=== PATIENT | female | born 1985 | race American Indian/Alaskan Native ===

== ENCOUNTER 2017-02-15 14:32 | Emergency (ER) | payer MEDICAID ==
[2017-02-15 15:53] LABS: Basophils % (Auto) 0.6 % (0.0-1.8); Eosinophils % (Auto) 1.6 % (0.0-4.3); Mean Corpuscular HGB Conc 33 % (30-34); Mean Corpuscular Hemoglobin 28 pg (28-32); Mean Corpuscular Volume 84 fl (79-97); Red Blood Count 4.31 M/mm3 (3.65-5.03); Red Cell Distribution Width 15.2 % (13.2-15.2); White Blood Count 9.1 K/mm3 (4.5-11.0)
[2017-02-15 15:54] LABS: Platelet Count 208 K/mm3 (140-440)
[2017-02-15 16:04] LABS: INR 1.05 (0.87-1.13)
[2017-02-15 16:05] LABS: Partial Thromboplastin Time 29.8 Sec. (24.2-36.6)
[2017-02-15 16:15] LABS: Anion Gap 18 mmol/L; BUN/Creatinine Ratio 23.33; Blood Urea Nitrogen 14 mg/dL (7-17); Calcium 8.7 mg/dL (8.4-10.2); Carbon Dioxide 25 mmol/L (22-30); Chloride 101.2 mmol/L (98-107); Glucose 82 mg/dL (65-100); Potassium 4.3 mmol/L (3.6-5.0); Sodium 140 mmol/L (137-145)
--- NOTE | 2017-02-15 17:40 | Cat Scan Report ---
FINAL REPORT EXAM: CT HEAD/BRAIN WO CON HISTORY: LEFT SIDED NUMBNESS TECHNIQUE: Standard unenhanced CT of the head at 5.0 millimeter axial increments. PRIORS: None. FINDINGS: The ventricular system is normal in size and configuration. There is no evidence for parenchymal volume loss. There is no evidence for mass lesion, mass effect, midline shift, acute intracranial hemorrhage, or acute ischemia/ infarction. No evidence for acute skull fracture is seen. No abnormality in the overlying scalp soft tissues is seen. Visualized paranasal sinuses are clear. IMPRESSION: Negative CT of the head. No acute intracranial process noted.
[2017-02-15 20:51] VITALS: BP 127/73
--- NOTE | 2017-02-15 20:52 | Emergency Department Report ---
HPI - General Chief Complaint: Neuro Symptoms/Deficit Time Seen by Provider: 02/15/17 20:15 - HPI HPI: This is a 31-year-old -[place] female, who drove herself in to be seen, with the complaints of a one-month history of some right-sided neck pain and shoulder pain that feels like stiffness. However the patient had an episode yesterday in which she fell while trying to get out of bed and felt like she had left leg weakness that caused her to have the inability to get up for about 30 minutes. Her symptoms improved and the patient ended up driving herself into work. However today, the patient also started having some pain to the left shoulder and arm and the left leg and was told to leave work and treatment. She has not taken anything for her symptoms prior to presentation. She denies any headache, vision change, slurred speech, facial asymmetry, chest pain, shortness of breath. No recent travel or sick contacts at home. Her only past medical history is gastroparesis. She does not have a primary care doctor. ED Past Medical Hx - Past Medical History Additional medical history: GASTROPARESIS - Surgical History Past Surgical History?: No - Social History Smoking Status: Current Every Day Smoker Substance Use Type: None - Medications Home Medications: Home Medications Medication Instructions Recorded Confirmed Last Taken Type Ibuprofen [Motrin 600 MG tab] 600 mg PO Q8H PRN #20 tablet 02/15/17 Unknown Rx ED Review of Systems ROS: Stated complaint: LT SIDE NUMBNESS Other details as noted in HPI Comment: All other systems reviewed and negative Constitutional: denies: chills, fever Eyes: denies: eye pain, eye discharge, vision change ENT: denies: ear pain, throat pain Respiratory: denies: cough, shortness of breath, wheezing Cardiovascular: denies: chest pain, palpitations Gastrointestinal: denies: abdominal pain, nausea, diarrhea Genitourinary: denies: urgency, dysuria, discharge Musculoskeletal: arthralgia, myalgia Skin: denies: rash, lesions Neurological: weakness. denies: headache, paresthesias Physical Exam - Physical Exam Vital Signs: Vital Signs 02/15/17 02/15/17 02/15/17 15:18 19:46 19:51 Temperature 98.9 F Pulse Rate 81 82 Respiratory 17 15 Rate Blood Pressure 137/98 135/50 O2 Sat by Pulse 100 87 82 L Oximetry 02/15/17 02/15/17 19:55 20:07 Temperature Pulse Rate 73 78 Respiratory 14 Rate Blood Pressure 135/50 O2 Sat by Pulse 99 Oximetry Physical Exam: GENERAL: The patient is well-developed well-nourished. HEENT: Normocephalic. Atraumatic. Extraocular motions are intact. Patient has moist mucous membranes. Pupils equal reactive to light bilaterally. No nystagmus. NECK: Supple. Trachea is midline. Full range of motion. No step-off or deformity. There is some tenderness to palpation that is reproducible along the right posterior lateral neck and lateral cervical muscles that travels down to the superior posterior right shoulder that appears consistent with tension along the trapezius muscle. CHEST/LUNGS: Clear to auscultation. There is no respiratory distress noted. HEART/CARDIOVASCULAR: Regular. There is no tachycardia. There is no gallop rub or murmur. ABDOMEN: Abdomen is soft, nontender. Patient has normal bowel sounds. There is no abdominal distention. SKIN: There is no rash. There is no edema. There is no diaphoresis. NEURO: The patient is awake, alert, and oriented. The patient is cooperative. The patient has no focal neurologic deficits. The patient has normal speech and gait. Cranial nerves II through XII grossly intact. No pronator drift. No dysmetria. DTR is 2 over 4 patellar bilaterally. MUSCULOSKELETAL: There is no tenderness or deformity. There is no limitation range of motion. There is no evidence of acute injury. Muscle strength 5 out of 5 upper and lower extremities bilaterally. ED Course Vital Signs 02/15/17 02/15/17 02/15/17 15:18 19:46 19:51 Temperature 98.9 F Pulse Rate 81 82 Respiratory 17 15 Rate Blood Pressure 137/98 135/50 O2 Sat by Pulse 100 87 82 L Oximetry 02/15/17 02/15/17 19:55 20:07 Temperature Pulse Rate 73 78 Respiratory 14 Rate Blood Pressure 135/50 O2 Sat by Pulse 99 Oximetry ED Medical Decision Making - Lab Data Result diagrams: 02/15/17 15:42 02/15/17 15:42 - EKG Data -: EKG Interpreted by Ut EKG shows normal: sinus rhythm, axis, intervals, QRS complexes, ST-T waves Rate: normal - EKG Data When compared to previous EKG there are: previous EKG unavailable Interpretation: normal EKG - Radiology Data Radiology results: report reviewed CT of the head does not show any acute process including no hemorrhage, mass, shift, diffuse edema or skull fracture. - Medical Decision Making This is a 31-year-old female presents to the emergency department with 2 main issues. First, the patient has been having chronic pain to the right side of the neck and shoulder for about 1 month or so. For the past 2 days she is also having some pain to the left arm and down the left leg. There is been no swelling, skin color change or any deformity. There has been no trauma. The other issue is that the patient had an episode yesterday which she fell trying to get out of bed to go to left lower extremity weakness. However the weakness resolved and the patient went on to go to work. Patient was evaluated today with physical exam, labs, imaging and EKG. EKG shows no ST elevation DE, ischemia or dysrhythmia. CT of the head without contrast does not show any bleed, shift, mass, ischemia or any acute process. Her labs are unremarkable and do not show any etiology for symptoms. The patient has some reproducible tenderness to palpation in certain areas of the body that also has taut musculature. Patient appears to have some musculoskeletal pain, probable muscle spasms, and there could be some underlying neuropathy. However there are no focal, motor or sensory deficits in her cranial nerves are intact. It is always possible that the patient had some level of a TIA yesterday but there is no lab or imaging that would confirm this. If the patient had a CVA yesterday, it would show up on the CT done today most likely. Patient is also a 0 on the NIH stroke scale at this point. The patient appears safe for discharge home. She does not have any risk factors for coronary artery disease , CVA. Patient was seen ambulatory in the emergency department and appears stable. She was given referrals for primary care, orthopedists for her arthralgia and spasms, and neurology weakness yesterday. She's been encouraged to return to the emergency department immediately via EMS if she has any further episodes of weakness or any neurological deficits or any acute distress. She understands and agrees to the plan. - Differential Diagnosis muscle spasm, musculoskeletal pain, TIA, neuropathy Critical Care Time: No Critical care attestation.: If time is entered above; I have spent that time in minutes in the direct care of this critically ill patient, excluding procedure time. ED Disposition Clinical Impression: Neck pain, Left arm pain, Left leg pain Right shoulder pain Qualifiers: Chronicity: unspecified Qualified Code(s): M25.511 - Pain in right shoulder Disposition: - TO HOME OR SELFCARE Is pt being admited?: No Condition: Stable Instructions: Weakness (ED), Arthralgia (ED), Muscle Spasm (ED) Additional Instructions: Please follow-up with a primary care physician in the next few days. I have given you a referral for a local orthopedist, Dr. Epps, in case she would like to follow-up regarding your shoulder, neck and leg pains. I have given you a referral for a local neurologist, Dr. Lynn, in case she would like to follow-up regarding the weakness you had yesterday. Return to the emergency department immediately with any recurrence in the weakness, falls, or any development of chest pain, shortness of breath, neurological deficits or any acute distress. Prescriptions: Ibuprofen [Motrin 600 MG tab] 600 mg PO Q8H PRN #20 tablet PRN Reason: Pain Referrals: PRIMARY CAREMD [Primary Care Provider] - 3-5 Days RICKIE LYNN MD [Staff Physician] - 3-5 Days LENNY EPPS MD [Staff Physician] - 3-5 Days [facility] [Outside] - 3-5 Days [facility] [Outside] - 3-5 Days [facility] [Outside] - 3-5 Days Time of Disposition: 20:52
== END 2017-02-15 21:03 | disposition home or self-care (01) ==
LOC: ED 14:32
DX: M54.2 Cervicalgia (principal); M79.602 Pain in left arm; M79.605 Pain in left leg; M25.511 Pain in right shoulder; F17.200 Nicotine dependence, unspecified, uncomplicated
CPT/HCPCS: 36415; 70450; 80048; 84484; 85025; 85610; 85670; 85730; 93005; 93010